=== PATIENT | male | born 1995 | race African-American/Black ===

== ENCOUNTER 2021-05-07 05:24 | Emergency (ER) | payer SELFPAY ==
[2021-05-07 06:19] LABS: BASOPHIL 0.2 % (0-2); EOSINOPHIL 0 % (0-5); HCT 46.9 % (42.0-52.0); HGB 15.3 g/dl (13.2-18.0); LYMPHOCYTE 7.7 % (15-48); MCH 30.2 pg (25.0-31.0); MCHC 32.6 g/dL (32.0-36.0); MCV 92.7 fL (78.0-100.0); MONOCYTE 5.2 % (0-12); MPV 11.8 fL (6.0-9.5); NEUTROPHIL 86.5 % (41-80); NRBC 0; PLT 199 K/uL (150-400); RBC 5.06 M/uL (4.70-6.00); WBC 13.7 K/uL (4.0-10.5)
[2021-05-07 06:21] LABS: ALBUMIN 4.9 g/dL (3.4-5.0); BILIRUBIN - TOTAL 0.4 mg/dL (0.2-1.0); BUN/CREAT RATIO (CALC) 10.4 RATIO; CREATININE 1.06 mg/dL (0.67-1.17); GLOBULIN (CALCULATION) 3.6 g/dL; POTASSIUM 4.1 mmol/L (3.5-5.1); TOTAL PROTEIN 8.5 g/dL (6.4-8.2)
[2021-05-07] MEDS ORDERED: ONDANSETRON ODT4 MG SL (07:08)
== END 2021-05-07 07:25 | disposition home or self-care (01) ==
LOC: FER 05:24
PROVIDERS: Emergency Medicine Emergency Medical Services
DX: E86.0 Dehydration (principal); R11.2 Nausea with vomiting, unspecified
CPT/HCPCS: 36415; 74018; 80053; 83690; 85025; J2405; J7120